=== PATIENT | female | born 1970 | race Caucasian/White ===

== ENCOUNTER 2017-09-06 16:10 | Emergency (ER) | payer BC ==
--- NOTE | 2017-09-06 16:57 | UC ---
Throat Pain/Nasal Tres HPI - HPI Summary HPI Summary: 46 year old female presents with sinus congestion and sore throat - History of Current Complaint Stated Complaint: SORE THROAT EARS SINUS Time Seen by Provider: 09/06/17 16:56 Hx Obtained From: Patient Hx Last Menstrual Period: 10/2015 Onset/Duration: Sudden Onset Severity: Moderate Cough: Nonproductive - Allergies/Home Medications Allergies/Adverse Reactions: Allergies Allergy/AdvReac Type Severity Reaction Status Date / Time Sulfa Drugs Allergy Unknown Unknown Verified 09/06/17 16:58 Reaction Details Gluten Meal AdvReac GI Upset Verified 09/06/17 16:58 Home Medications: Home Medications [id number] [Vicks Dayquil/Nyquil Cold] 1 mis PO ONCE [History Confirmed 09/06/17] PMH/Surg Hx/FS Hx/Imm Hx Previously Healthy: Yes - Surgical History Surgical History: Yes Surgery Procedure, Year, and Place: Left Arthroscopy, ~2009, [place] - Family History Known Family History: Positive: None Family History: no known cardio vascular issues in family lineage - Social History Alcohol Use: Rare Substance Use Type: None Smoking Status (MU): Never Smoked Tobacco - Immunization History Most Recent Influenza Vaccination: Not the 2015/2016 Season Review of Systems Constitutional: Negative Skin: Negative Eyes: Negative ENT: Sore Throat, Nasal Discharge, Sinus Congestion, Sinus Pain/Tenderness Respiratory: Cough Cardiovascular: Negative Gastrointestinal: Negative Genitourinary: Negative Motor: Negative Neurovascular: Negative Musculoskeletal: Negative Neurological: Negative Psychological: Negative All Other Systems Reviewed And Are Negative: Yes Physical Exam Triage Information Reviewed: Yes Vital Signs Reviewed: Yes Eye Exam: Normal ENT: Positive: Pharyngeal erythema, Nasal congestion, Nasal drainage Dental Exam: Normal Neck exam: Normal Neck: Positive: 1 Respiratory: Positive: Rhonchi, Wheezing Cardiovascular Exam: Normal Abdominal Exam: Normal Musculoskeletal Exam: Normal Neurological Exam: Normal Psychological Exam: Normal Skin Exam: Normal Throat Pain/Nasal Course/Dx - Differential Dx/Diagnosis Provider Diagnoses: sinus congestion Discharge - Discharge Plan Condition: Stable Disposition: HOME Prescriptions: Amoxicillin/Clavulanate TAB* [Augmentin TAB 875*] 875 mg PO BID #14 tab Magic M W2 Edwin/Maal/Nyst/Lido* 5 ml SWISH SPIT QID PRN #120 ml PRN Reason: Sore Throat Neomyc/Polym/HC 1% OTIC SUSP* [Cortisporin Otic Susp 1%*] 4 drop RIGHT EAR QID # 1 btl Patient Education Materials: Sinusitis (ED) Referrals: Ifeoma Gan MD [Primary Care Provider] -
[2017-09-06 16:59] VITALS: BP 116/62
== END 2017-09-06 17:25 | disposition home or self-care (01) ==
LOC: UCCORT 16:10
DX: J02.9 Acute pharyngitis, unspecified (principal); Z77.22 Contact with and (suspected) exposure to environmental tobacco smoke (acute) (chronic)
CPT/HCPCS: 87651; 99212; G0463

== ENCOUNTER 2017-09-11 13:06 | Emergency (ER) | payer BC ==
[2017-09-11 15:31] VITALS: BP 138/59
--- NOTE | 2017-09-11 16:12 | RAD ---
INDICATION: Elbow pain since a fall COMPARISON: None. TECHNIQUE: 4 views left elbow. REPORT: There is a well-corticated bony focus immediately anterior to the coronoid process. Otherwise there is no radiographically apparent fracture or dislocation. There is no radiographic evidence of pathologic joint effusion. IMPRESSION: The differential nondisplaced fracture of the coronoid process. If the patient's symptoms persist further follow-up imaging is recommended.
--- NOTE | 2017-09-11 16:23 | UC ---
Elbow Pain - HPI Summary HPI Summary: Pt reports that she was walking up stairs in house last night and tripped and grabbed handrail and fell and grabbed railing and arm twisted and hung from railing. , - History of Current Complaint Chief Complaint: UCUpperExtremity Stated Complaint: LEFT ELBOW INJURY Time Seen by Provider: 09/11/17 15:44 Hx Obtained From: Patient Hx Last Menstrual Period: 08/22/17 ?: No Onset/Duration: Days - 2, Still Present Severity Initially: Mild Severity Currently: Moderate Location Of Pain: Is Discrete @ - left elbow Character: Dull, Aching Aggravating Factor(s): Movement, Pulling, Twisting Alleviating Factor(s): Rest - Allergies/Home Medications Allergies/Adverse Reactions: Allergies Allergy/AdvReac Type Severity Reaction Status Date / Time Sulfa Drugs Allergy Unknown Unknown Verified 09/11/17 15:25 Reaction Details Gluten Meal AdvReac GI Upset Verified 09/11/17 15:25 Home Medications: Home Medications Ibuprofen [Advil] 400 mg PO Q4H PRN 09/11/17 [History Confirmed 09/11/17] PMH/Surg Hx/FS Hx/Imm Hx Previously Healthy: Yes - Surgical History Surgical History: Yes Surgery Procedure, Year, and Place: Left Arthroscopy, ~2009, [place] - Family History Known Family History: Positive: Cardiac Disease Family History: no known cardio vascular issues in family lineage - Social History Occupation: Employed Full-time Lives: With Family Alcohol Use: Rare Substance Use Type: None Smoking Status (MU): Never Smoked Tobacco Have You Smoked in the Last Year: No - Immunization History Most Recent Influenza Vaccination: Not the Season Review of Systems Constitutional: Negative Skin: Negative Eyes: Negative ENT: Negative Respiratory: Negative Cardiovascular: Negative Gastrointestinal: Negative Genitourinary: Negative Motor: Decreased ROM - left elbow Neurovascular: Negative Musculoskeletal: Arthralgia - left elbow, Decreased ROM - left elbow, Myalgia - left elbow Neurological: Negative Psychological: Negative Is Patient Immunocompromised?: No All Other Systems Reviewed And Are Negative: Yes Physical Exam Triage Information Reviewed: Yes Appearance: Pain Distress - mild Vital Signs: Initial Vital Signs Temp 98.6 F 09/11/17 15:27 Pulse 91 09/11/17 15:27 Resp 18 09/11/17 15:27 BP 138/59 09/11/17 15:27 Vital Signs Reviewed: Yes Eye Exam: Normal ENT Exam: Normal Neck exam: Normal Respiratory Exam: Normal Cardiovascular Exam: Normal Musculoskeletal: Positive: Strength Limited @ - left elbow, ROM Limited @ - left elbow, Other: - radial head point tenderness Neurological Exam: Normal Psychological Exam: Normal Skin Exam: Normal Elbow Pain Course/Dx - Course Course Of Treatment: I discussed the results of the xray with the pt. She verbalized understanding. - Differential Dx/Diagnosis Differential Diagnosis/HQI/PQRI: Fracture (Closed), Nursemaid's Elbow, Sprain Provider Diagnoses: left elbow sprain Discharge - Discharge Plan Condition: Stable Disposition: HOME Prescriptions: Metaxalone TAB* [Skelaxin TAB*] 800 mg PO TID PRN #15 tab PRN Reason: Pain Patient Education Materials: Elbow Sprain (ED) Referrals: Ifeoma Gan MD [Primary Care Provider] - If Needed Yanick Tracey MD [Medical Doctor] - If Needed
== END 2017-09-11 16:37 | disposition home or self-care (01) ==
LOC: UCCORT 13:06
DX: S53.402A Unspecified sprain of left elbow, initial encounter (principal); Z91.02 Food additives allergy status; Z88.2 Allergy status to sulfonamides; X58.XXXA Exposure to other specified factors, initial encounter
CPT/HCPCS: 99213; G0463

== ENCOUNTER 2018-01-03 14:59 | Emergency (ER) | payer BC ==
[2018-01-03 16:18] VITALS: BP 136/74
[2018-01-03] MEDS ORDERED: Albuterol 2.5 MG/3 ML NEB.SOL* (0.083%) INH ONE (17:03)
--- NOTE | 2018-01-03 17:11 | UC ---
UC General HPI - HPI Summary HPI Summary: HEADACHE, COUGH, FEVER SINCE YESTERDAY. ADMITS TO WHEEZING AND SOB. NO CP OR HX ASTHMA. - History of Current Complaint Chief Complaint: UCGeneralIllness Stated Complaint: COUGH,CHEST CONGESTION,HEADACHE Time Seen by Provider: 01/03/18 16:58 Hx Obtained From: Patient Hx Last Menstrual Period: 12/11/17 Onset/Duration: Sudden Onset Timing: Constant Onset Severity: Moderate Pain Intensity: 5 Associated Signs & Symptoms: Positive: Cough, Fever, Headache, SOB, Other - MUSCLE ACHES - Allergy/Home Medications Allergies/Adverse Reactions: Allergies Allergy/AdvReac Type Severity Reaction Status Date / Time Sulfa (Sulfonamide Allergy Unknown Verified 01/03/18 16:15 Antibiotics) Reaction Details gluten AdvReac GI Upset Verified 01/03/18 16:15 PMH/Surg Hx/FS Hx/Imm Hx Endocrine History: Thyroid Disease - Surgical History Surgical History: Yes Surgery Procedure, Year, and Place: Left Arthroscopy, ~2009, [place] - Family History Known Family History: Positive: None, Cardiac Disease Family History: no known cardio vascular issues in family lineage - Social History Occupation: Employed Full-time Lives: With Family Alcohol Use: Rare Substance Use Type: None Smoking Status (MU): Never Smoked Tobacco Have You Smoked in the Last Year: No - Immunization History Most Recent Influenza Vaccination: Not the 2015/2016 Season Review of Systems Constitutional: Fever, Chills Skin: Negative Eyes: Negative Respiratory: Shortness Of Breath, Cough Cardiovascular: Negative Gastrointestinal: Negative Genitourinary: Negative Is Patient Immunocompromised?: No All Other Systems Reviewed And Are Negative: Yes Physical Exam Triage Information Reviewed: Yes Appearance: Well-Appearing Vital Signs: Initial Vital Signs Temp 98.9 F 01/03/18 16:11 Pulse 96 01/03/18 16:11 Resp 20 01/03/18 16:11 BP 136/74 01/03/18 16:11 Pulse Ox 100 01/03/18 16:11 Vital Signs Reviewed: Yes Eye Exam: Normal ENT Exam: Normal Neck exam: Normal Respiratory: Positive: No respiratory distress, Decreased breath sounds, Wheezing Cardiovascular: Positive: RRR, No Murmur Abdomen Description: Positive: Nontender, No Organomegaly, Soft Bowel Sounds: Positive: Present Musculoskeletal: Positive: No Edema Neurological: Positive: Alert Psychological: Positive: Age Appropriate Behavior Skin Exam: Normal Diagnostics - Laboratory Diagnostic Studies Completed/Ordered: rapid flu=neg. cxr=nad Course/Dx - Course Course Of Treatment: cxr=nad, rapid flu=neg. lungs clear with good aeration post neb tx. pt still notes a little sob but not hypoxic or toxic. since presentation c/w influenza, will tx for SUELLEN and bronchospasm with Tamiflu, albuterol and prednisone. case briefly d/w dr yeboah. - Differential Dx - Multi-Symptom Provider Diagnoses: Influenza like illness. bronchospasm Discharge - Discharge Plan Condition: Stable Disposition: HOME Prescriptions: Albuterol HFA INHALER* [Ventolin HFA Inhaler*] 2 puff INH Q6H 14 Days #1 mdi Oseltamivir CAP* [Tamiflu CAP*] 75 mg PO BID 5 Days #10 cap predniSONE [Prednisone] 40 mg PO DAILY 3 Days #6 tablet Patient Education Materials: Influenza (ED), Bronchospasm (ED) Referrals: Ifeoma Gan MD [Primary Care Provider] - 4 Days
--- NOTE | 2018-01-03 17:40 | RAD ---
INDICATION: Shortness of breath and wheezing COMPARISON: Chest x-ray January 08, 2016 TECHNIQUE: PA and lateral views of the chest were obtained. FINDINGS: The heart and mediastinum are normal in size and contour. The lungs are grossly clear. There is no evidence of large pleural effusion. Visualized bones are normal for the patient's age. There is no radiographic evidence of free air beneath the diaphragm IMPRESSION: No radiographic evidence of acute cardiopulmonary disease.
== END 2018-01-03 18:38 | disposition home or self-care (01) ==
LOC: UCCORT 14:59
DX: J11.1 Influenza due to unidentified influenza virus with other respiratory manifestations (principal)
CPT/HCPCS: 71046; 87502; 99212; G0463

== ENCOUNTER 2018-08-12 15:47 | Emergency (ER) | payer BC ==
[2018-08-12 17:25] VITALS: BP 122/58
--- NOTE | 2018-08-12 18:32 | UC ---
Throat Pain/Nasal Tres HPI - HPI Summary HPI Summary: Pt c/o generalized malaise, ST and tender enlarged lymph nodes in neck X 5 days. - History of Current Complaint Chief Complaint: UCRespiratory Stated Complaint: SINUS/SORE THROAT Time Seen by Provider: 08/12/18 18:20 Hx Obtained From: Patient Hx Last Menstrual Period: 08/09/18 ?: No Onset/Duration: Gradual Onset, Lasting Days Severity: Moderate Pain Intensity: 7 Cough: None Associated Signs & Symptoms: Positive: Dysphagia, Fever Related History: Seasonal Allergies - Epiglottits Risk Factors Epiglottis Risk Factors: Negative - Allergies/Home Medications Allergies/Adverse Reactions: Allergies Allergy/AdvReac Type Severity Reaction Status Date / Time Sulfa (Sulfonamide Allergy Unknown Verified 08/12/18 17:26 Antibiotics) Reaction Details gluten AdvReac GI Upset Verified 08/12/18 17:26 Home Medications: Home Medications D-Methorphan/PE/Acetaminophen [Vicks Dayquil Liquicaps] 2 each PO Q6H PRN [History Confirmed 08/12/18] Levothyroxine TAB* [Synthroid TAB*] 175 mcg PO DAILY 08/12/18 [History Confirmed 08/12/18] PMH/Surg Hx/FS Hx/Imm Hx Previously Healthy: Yes - Surgical History Surgical History: Yes Surgery Procedure, Year, and Place: Left knee Arthroscopy, ~2009, [place] - Family History Known Family History: Positive: Cardiac Disease Family History: no known cardio vascular issues in family lineage - Social History Occupation: Employed Full-time Lives: With Family Alcohol Use: Rare Substance Use Type: None Smoking Status (MU): Never Smoked Tobacco Have You Smoked in the Last Year: No - Immunization History Most Recent Influenza Vaccination: Not the Season Review of Systems Constitutional: Fatigue Skin: Negative Eyes: Negative ENT: Sore Throat, Ear Ache Respiratory: Negative Cardiovascular: Negative Gastrointestinal: Negative Genitourinary: Negative Motor: Negative Neurovascular: Negative Musculoskeletal: Myalgia Neurological: Negative Psychological: Negative Is Patient Immunocompromised?: No All Other Systems Reviewed And Are Negative: Yes Physical Exam Triage Information Reviewed: Yes Appearance: Ill-Appearing Vital Signs: Initial Vital Signs Temp 98.1 F 08/12/18 17:16 Pulse 87 08/12/18 17:16 Resp 18 08/12/18 17:16 BP 122/58 09/21/18 17:16 Pulse Ox 97 08/12/18 17:16 Vital Signs Reviewed: Yes Eye Exam: Normal ENT: Positive: Pharyngeal erythema, Tonsillar swelling Dental Exam: Normal Neck: Positive: Enlarged Nodes @ - bilateral cervical Respiratory Exam: Normal Cardiovascular Exam: Normal Musculoskeletal Exam: Normal Neurological Exam: Normal Psychological Exam: Normal Skin Exam: Normal Diagnostics - Laboratory Diagnostic Studies Completed/Ordered: rapid strep: negative Throat Pain/Nasal Course/Dx - Differential Dx/Diagnosis Differential Diagnosis/HQI/PQRI: Influenza, Pharyngitis, URI Provider Diagnoses: tonsillitis Discharge - Sign-Out/Discharge Documenting (check all that apply): Patient Departure All imaging exams completed and their final reports reviewed: No Studies - Discharge Plan Condition: Stable Disposition: HOME Prescriptions: Amoxicillin PO (*) [Amoxicillin 500 MG CAP*] 500 mg PO Q12H #10 cap Lidocaine 2% VISCOUS* [Xylocaine 2% Viscous*] 15 ml SWISH SPIT Q4H PRN #1 btl PRN Reason: Pain Patient Education Materials: Tonsillitis (ED) Referrals: Ifeoma Gan MD [Primary Care Provider] - If Needed - Billing Disposition and Condition Condition: STABLE Disposition: Home
== END 2018-08-12 18:38 | disposition home or self-care (01) ==
LOC: UCCORT 15:47
DX: J03.90 Acute tonsillitis, unspecified (principal); Z88.1 Allergy status to other antibiotic agents
CPT/HCPCS: 87651; 99212; G0463